=== PATIENT | male | born 1970 | race African-American/Black ===

== ENCOUNTER 2023-01-15 19:44 | Inpatient (IN) | payer OTHER ==
[2023-01-15 22:04] VITALS: BMI 21.1
[2023-01-15] MEDS ORDERED: POLYETHYLENE GLYCOL (HEALTHYLAX) 3350 17 GM PACKET PO PRN (23:17)
[2023-01-15] MEDS ORDERED: BENZONATATE 200 MG CAPSULE PO PRN (23:17)
[2023-01-15] MEDS ORDERED: COLLOIDAL OATMEAL 1 BAR EACH TP PRN (23:17)
[2023-01-15] MEDS ORDERED: LOPERAMIDE HCL 2 MG CAPSULE PO PRN (23:17)
[2023-01-15] MEDS ORDERED: BENZOCAINE/MENTHOL (CHLORASEPTIC ) LOZENGE MM PRN (23:17)
[2023-01-15] MEDS ORDERED: guaiFENesin 600 MG TABLET.ER (FP) PO PRN (23:17)
[2023-01-15] MEDS ORDERED: MAGNESIUM HYDROX 2400MG/30ML ORAL SUSPENSION 30 ML CUP PO PRN (23:17)
[2023-01-15] MEDS ORDERED: IBUPROFEN 400 MG TABLET (FP) PO PRN (23:17)
[2023-01-15] MEDS ORDERED: NALOXONE HCL 0.4 MG/ML VIAL IM PRN (23:17)
[2023-01-15] MEDS ORDERED: MAG HYDROX/AL HYDROX/SIMETH 30 ML UNIT-DOSE CUP PO PRN (23:17)
[2023-01-15] MEDS ORDERED: IBUPROFEN 600 MG TABLET (FP) PO PRN (23:17)
[2023-01-15] MEDS ORDERED: hydrOXYzine PAMOATE 25 MG CAPSULE (FP) PO PRN (23:17)
[2023-01-15] MEDS ORDERED: NALOXONE HCL (KLOXXADO) 8 MG SPRAY NS PRN (23:17)
[2023-01-15] MEDS ORDERED: ACETAMINOPHEN 325 MG TABLET (FP) PO PRN (23:17)
[2023-01-16] MEDS ORDERED: TUBERCULIN PPD 5 TU/0.1ML SYRINGE (IN PATIENT USE ONLY) ID ONE (03:18)
[2023-01-16] MEDS: MELATONIN 5 MG TABLETS PO SCH ×2 (03:48→21:16)
[2023-01-16] MEDS ORDERED: TUBERCULIN PPD 5 TU/0.1ML VIAL ID ONE (09:18)
[2023-01-16] MEDS: PRENATAL VITAMINS W/ FOLIC ACID TABLET (FP) PO SCH (10:10)
[2023-01-16] MEDS: CHLORTHALIDONE 25 MG TABLET PO SCH (16:09)
[2023-01-16 18:44] LABS: PH,URINE 6.5 (5.0-8.0); URINE APPEARANCE CLEAR; URINE BILIRUBIN NEGATIVE (NEGATIVE); URINE COLOR YELLOW; URINE GLUCOSE (UA) NEGATIVE (NEGATIVE); URINE KETONE NEGATIVE (NEGATIVE); URINE LEUK ESTERASE NEGATIVE (NEGATIVE); URINE NITRITE NEGATIVE (NEGATIVE); URINE PROTEIN NEGATIVE (NEGATIVE); URINE UROBILINOGEN 0.2 mg/dL (0.2-1.0)
[2023-01-16] MEDS: THIAMINE HCL 100 MG TABLET (FP) PO SCH (21:14)
[2023-01-16] MEDS: GABAPENTIN 300 MG CAPSULE PO SCH (21:15)
[2023-01-17] MEDS: CHLORTHALIDONE 25 MG TABLET PO SCH (10:06)
[2023-01-17] MEDS: GABAPENTIN 300 MG CAPSULE PO SCH ×2 (10:06→21:24)
[2023-01-17] MEDS: PRENATAL VITAMINS W/ FOLIC ACID TABLET (FP) PO SCH (10:06)
[2023-01-17] MEDS: ATORVASTATIN CA 40 MG TABLET (FP) PO SCH (10:06)
[2023-01-17 10:13] LABS: POTASSIUM 3.6 mmol/L (3.5-5.1)
[2023-01-17 10:21] LABS: CALCIUM 9.9 mg/dL (8.5-10.1)
[2023-01-17 10:22] LABS: ALBUMIN 3.9 g/dl (3.4-5.0); BLOOD UREA NITROGEN 7.4 mg/dL (7-18)
[2023-01-17 10:24] LABS: CREATININE 1.3 mg/dL (0.55-1.3)
[2023-01-17 10:26] LABS: BILIRUBIN,TOTAL 1.7 mg/dL (0.2-1); TOT PROT 8.6 g/dl (6.4-8.2)
[2023-01-17 10:52] LABS: BASO % 0.7 % (0-2.0); EOS % 3.7 % (0-4.5); HEMOGLOBIN 16.7 GM/dL (11.7-16.9); LYMPH % 35.7 % (8-40); MCH 33.9 pg (25.7-33.7); MEAN CELL VOLUME 99.5 fl (80-96); MEAN PLT VOLUME 9.4 fl (7.5-11.1); MONO % 11.7 % (3.8-10.2); NEUT % 48.2 % (42.8-82.8); PLATELET COUNT 280 10^3/uL (134-434); RBC 4.92 M/mm3 (4.00-5.60); RDW 14.5 % (11.9-15.9); WHITE BLOOD COUNT 4.5 K/mm3 (4.0-10.0)
[2023-01-17] MEDS: THIAMINE HCL 100 MG TABLET (FP) PO SCH (21:24)
[2023-01-17] MEDS: MELATONIN 5 MG TABLETS PO SCH (21:25)
[2023-01-18] MEDS: ATORVASTATIN CA 40 MG TABLET (FP) PO SCH (10:04)
[2023-01-18] MEDS: PRENATAL VITAMINS W/ FOLIC ACID TABLET (FP) PO SCH (10:04)
[2023-01-18] MEDS: GABAPENTIN 300 MG CAPSULE PO SCH ×2 (10:04→21:08)
[2023-01-18] MEDS: CHLORTHALIDONE 25 MG TABLET PO SCH (10:06)
[2023-01-18] MEDS: THIAMINE HCL 100 MG TABLET (FP) PO SCH (21:08)
[2023-01-18] MEDS: MELATONIN 5 MG TABLETS PO SCH (21:09)
[2023-01-19] MEDS: PRENATAL VITAMINS W/ FOLIC ACID TABLET (FP) PO SCH (10:14)
[2023-01-19] MEDS: CHLORTHALIDONE 25 MG TABLET PO SCH (10:15)
[2023-01-19] MEDS: ATORVASTATIN CA 40 MG TABLET (FP) PO SCH (10:15)
[2023-01-19] MEDS: GABAPENTIN 300 MG CAPSULE PO SCH ×2 (10:15→21:09)
[2023-01-19] MEDS: THIAMINE HCL 100 MG TABLET (FP) PO SCH (21:08)
[2023-01-19] MEDS: MELATONIN 5 MG TABLETS PO SCH (21:09)
[2023-01-20] MEDS: GABAPENTIN 300 MG CAPSULE PO SCH ×2 (09:50→21:32)
[2023-01-20] MEDS: CHLORTHALIDONE 25 MG TABLET PO SCH (09:51)
[2023-01-20] MEDS: ATORVASTATIN CA 40 MG TABLET (FP) PO SCH (09:51)
[2023-01-20] MEDS: PRENATAL VITAMINS W/ FOLIC ACID TABLET (FP) PO SCH (09:51)
[2023-01-20] MEDS: MELATONIN 5 MG TABLETS PO SCH (21:32)
[2023-01-20] MEDS: THIAMINE HCL 100 MG TABLET (FP) PO SCH (21:32)
[2023-01-21] MEDS: GABAPENTIN 300 MG CAPSULE PO SCH ×2 (09:59→21:11)
[2023-01-21] MEDS: ATORVASTATIN CA 40 MG TABLET (FP) PO SCH (09:59)
[2023-01-21] MEDS: CHLORTHALIDONE 25 MG TABLET PO SCH (09:59)
[2023-01-21] MEDS: PRENATAL VITAMINS W/ FOLIC ACID TABLET (FP) PO SCH (10:00)
[2023-01-21] MEDS: THIAMINE HCL 100 MG TABLET (FP) PO SCH (21:11)
[2023-01-21] MEDS: MELATONIN 5 MG TABLETS PO SCH (21:11)
[2023-01-22] MEDS: PRENATAL VITAMINS W/ FOLIC ACID TABLET (FP) PO SCH (10:08)
[2023-01-22] MEDS: GABAPENTIN 300 MG CAPSULE PO SCH ×2 (10:08→21:13)
[2023-01-22] MEDS: CHLORTHALIDONE 25 MG TABLET PO SCH (10:08)
[2023-01-22] MEDS: ATORVASTATIN CA 40 MG TABLET (FP) PO SCH (10:08)
[2023-01-22] MEDS: THIAMINE HCL 100 MG TABLET (FP) PO SCH (21:12)
[2023-01-22] MEDS: MELATONIN 5 MG TABLETS PO SCH (21:13)
[2023-01-23] MEDS: ATORVASTATIN CA 40 MG TABLET (FP) PO SCH (10:32)
[2023-01-23] MEDS: GABAPENTIN 300 MG CAPSULE PO SCH ×2 (10:32→21:29)
[2023-01-23] MEDS: CHLORTHALIDONE 25 MG TABLET PO SCH (10:33)
[2023-01-23] MEDS: PRENATAL VITAMINS W/ FOLIC ACID TABLET (FP) PO SCH (10:33)
[2023-01-23] MEDS: THIAMINE HCL 100 MG TABLET (FP) PO SCH (21:28)
[2023-01-23] MEDS: MELATONIN 5 MG TABLETS PO SCH (21:29)
[2023-01-24] MEDS: GABAPENTIN 300 MG CAPSULE PO SCH ×2 (09:38→21:15)
[2023-01-24] MEDS: CHLORTHALIDONE 25 MG TABLET PO SCH (09:38)
[2023-01-24] MEDS: PRENATAL VITAMINS W/ FOLIC ACID TABLET (FP) PO SCH (09:38)
[2023-01-24] MEDS: ATORVASTATIN CA 40 MG TABLET (FP) PO SCH (09:38)
[2023-01-24] MEDS: THIAMINE HCL 100 MG TABLET (FP) PO SCH (21:15)
[2023-01-24] MEDS: MELATONIN 5 MG TABLETS PO SCH (21:15)
[2023-01-25] MEDS: CHLORTHALIDONE 25 MG TABLET PO SCH (10:14)
[2023-01-25] MEDS: ATORVASTATIN CA 40 MG TABLET (FP) PO SCH (10:14)
[2023-01-25] MEDS: GABAPENTIN 300 MG CAPSULE PO SCH ×2 (10:15→21:14)
[2023-01-25] MEDS: PRENATAL VITAMINS W/ FOLIC ACID TABLET (FP) PO SCH (10:15)
[2023-01-25] MEDS: THIAMINE HCL 100 MG TABLET (FP) PO SCH (21:14)
[2023-01-25] MEDS: MELATONIN 5 MG TABLETS PO SCH (21:14)
[2023-01-26] MEDS: ATORVASTATIN CA 40 MG TABLET (FP) PO SCH (09:58)
[2023-01-26] MEDS: CHLORTHALIDONE 25 MG TABLET PO SCH (09:58)
[2023-01-26] MEDS: GABAPENTIN 300 MG CAPSULE PO SCH ×2 (09:58→21:18)
[2023-01-26] MEDS: PRENATAL VITAMINS W/ FOLIC ACID TABLET (FP) PO SCH (09:59)
[2023-01-26] MEDS: THIAMINE HCL 100 MG TABLET (FP) PO SCH (21:18)
[2023-01-26] MEDS: MELATONIN 5 MG TABLETS PO SCH (21:19)
[2023-01-27 06:40] VITALS: RESP 16; TEMP 98
[2023-01-27] MEDS: CHLORTHALIDONE 25 MG TABLET PO SCH (09:08)
[2023-01-27] MEDS: ATORVASTATIN CA 40 MG TABLET (FP) PO SCH (09:09)
[2023-01-27] MEDS: GABAPENTIN 300 MG CAPSULE PO SCH (09:09)
[2023-01-27] MEDS: PRENATAL VITAMINS W/ FOLIC ACID TABLET (FP) PO SCH (09:09)
[2023-01-27 09:19] VITALS: BP 137/97; PULSE 102
== END 2023-01-27 09:30 | disposition home or self-care (01) | DRG 772 ==
LOC: YASAS 19:44 → Y3E 01-16 03:00
PROVIDERS: ADMIT Allergy & Immunology; ATTEND Psychiatry & Neurology Pain Medicine
PROC: HZ42ZZZ Group Counseling for Substance Abuse Treatment, Cognitive-Behavioral (ICD-10-PCS; principal; 2023-01-16)
DX: F10.20 Alcohol dependence, uncomplicated (principal); E78.5 Hyperlipidemia, unspecified; I10 Essential (primary) hypertension; Z87.891 Personal history of nicotine dependence; Z28.310 Unvaccinated for COVID-19; Z28.9 Immunization not carried out for unspecified reason
CPT/HCPCS: 36415; 80053; 81003; 82962; 85025; 87635; 87811